=== PATIENT | female | born 2000 | race Caucasian/White ===

== ENCOUNTER 2022-05-18 07:46 | Emergency (ER) | payer MEDICAID, OTHER ==
[~2022-05-18] VITALS: Ht 160 cm; Wt 82.0 kg
[2022-05-18 09:10] LABS: CHLORIDE 109 mEq/L (98-107)
[2022-05-18 09:14] LABS: BASOPHILS % 0.6 % (0.0-2.0); EOSINOPHILS % 5.1 % (0.0-5.0); HEMATOCRIT. 43.1 % (36.0-48.0); HEMOGLOBIN. 14.6 g/dL (12.0-16.0); MEAN CORPUSCULAR HEMOGLOBIN 28.2 pg (28.0-32.0); MEAN CORPUSCULAR VOLUME 83.3 fL (81.0-99.0); MEAN PLATELET VOLUME 9.6 fl (7.4-10.4); MONOCYTES % 8.6 % (2.0-8.0); NEUTROPHILS % 62.7 % (40.0-76.0); PLATELET 268 x1000/uL (130-400); RED BLOOD CELL COUNT 5.18 mill/uL (4.2-5.4); RED CELL DISTRIBUTION WIDTH 15.2 % (11.6-14.6)
[2022-05-18 09:48] VITALS: BP 132/75
== END 2022-05-18 09:49 | disposition home or self-care (01) ==
LOC: ER 07:53
DX: R06.02 Shortness of breath (principal); F41.9 Anxiety disorder, unspecified; Z98.890 Other specified postprocedural states
CPT/HCPCS: 36415; 71045; 80053; 83880; 85025; 99284

== ENCOUNTER 2023-08-09 12:59 | Emergency (ER) | payer MEDICAID, OTHER ==
[~2023-08-09] VITALS: Ht 160 cm; Wt 82.0 kg
[2023-08-09 13:18] VITALS: BP 124/73; RESP 16; O2SAT 100
[2023-08-09 13:22] VITALS: PULSE 111
[2023-08-09 14:00] VITALS: TEMP 98.5
[2023-08-09] MEDS ORDERED: ACETAMINOPHEN 325MG TABLET PO ONE (14:00)
[2023-08-09] MEDS ORDERED: IBUP-1525 MT (17:02)
[2023-08-09] MEDS ORDERED: TOPUD MT (17:02)
== END 2023-08-09 17:40 | disposition home or self-care (01) ==
LOC: ER 13:07
DX: M79.671 Pain in right foot (principal)
CPT/HCPCS: 73630; 99283

== ENCOUNTER 2023-11-29 07:38 | Emergency (ER) | payer MEDICAID, OTHER ==
[~2023-11-29] VITALS: Ht 162.6 cm; Wt 76.0 kg
[~2023-11-29 07:38] MED LIST: IBUP-1525 MT; TOPUD MT
[2023-11-29 07:52] VITALS: O2SAT 100
[2023-11-29] MEDS ORDERED: IBUP-2029 MT (08:27)
[2023-11-29] MEDS ORDERED: METH-653 MT (08:27)
[2023-11-29] MEDS ORDERED: METHOCARBAMOL 500MG TABLET PO ONE (08:30)
[2023-11-29] MEDS: DIAZEPAM 2 MG TABLET PO ONE (08:57)
[2023-11-29] MEDS: KETOROLAC 30MG/ML VIAL IM ONE (08:57)
[2023-11-29 09:09] VITALS: BP 154/94; PULSE 93; RESP 20; TEMP 98.2
== END 2023-11-29 09:10 | disposition home or self-care (01) ==
LOC: ER 07:38
DX: M43.6 Torticollis (principal); Z98.890 Other specified postprocedural states
CPT/HCPCS: 81025; 96372; 99283; J1885; Z7610